=== PATIENT | female | born 1975 | race Caucasian/White ===

== ENCOUNTER 2016-08-11 05:46 | Observation (INO) | payer BC, SELFPAY ==
[2016-08-05 08:33] VITALS: BMI 40.0
--- NOTE | 2016-08-05 09:01 | PAT Medication Instructions ---
Service Date Aug 05, 2016. Current Home Medication List Citalopram Hydrobromide (Celexa), 20 MG PO QPM Fexofenadine Hcl (Kim Allergy), 1 TAB PO QPM Fish Oil (Potter-3), 2 CAP PO QPM Multivitamin (Multivitamin), 1 TAB PO QPM Naproxen Sodium (Aleve), 440 MG PO PRN Ranitidine Hcl (Zantac), 75 MG PO QPM Topiramate (Topamax), 25 MG PO QPM Medication Instructions For Your Scheduled Surgery - Check with surgeon for instructions: Naproxen Sodium (Aleve), 440 MG PO PRN - Hold the following medications starting 08/05/16: Fish Oil ([place]ter-3), 2 CAP PO QPM - Take the following medications as scheduled the night before surgery: Topiramate (Topamax), 25 MG PO QPM Ranitidine Hcl (Zantac), 75 MG PO QPM Multivitamin (Multivitamin), 1 TAB PO QPM Fexofenadine Hcl (Kim Allergy), 1 TAB PO QPM Citalopram Hydrobromide (Celexa), 20 MG PO QPM If you have any questions please call us at [phone] (Krista Pat PA-C) or [phone] or [phone]
[2016-08-05 09:27] LABS: BASO % 0.4 %; BASO ABS # 0.04 K/uL (0-0.2); COMPLETE YES; EOS % 1.6 %; HEMATOCRIT 40.7 % (37-47); IG% 0.2 %; LYMPH % 27.1 %; LYMPH ABS # 2.75 K/uL (1.2-3.4); MEAN CELL VOLUME 89.1 fL (80-100); MEAN CORPUSCULAR HEMOGLOBIN 30.6 pg (25-34); MEAN CORPUSCULAR HGB CONC 34.4 g/dl (32-36); MEAN PLATELET VOLUME 9.5 fL (7.4-10.4); MONO % 7.8 %; NEUT % 62.9 %; PLATELET COUNT 318 K/uL (130-400); RED BLOOD COUNT 4.57 M/uL (4.2-5.4); WHITE BLOOD COUNT 10.15 K/uL (4.8-10.8)
[2016-08-05 09:29] LABS: PARTIAL THROMBOPLASTIN RATIO 1.1; PROTHROMBIN TIME (PATIENT) 10.5 SECONDS (9.0-12.0)
[2016-08-05 09:42] LABS: CALCIUM 9.1 mg/dl (8.5-10.1); CREATININE 0.9 mg/dl (0.60-1.20); POTASSIUM 4.9 mmol/L (3.5-5.1)
[~2016-08-11] VITALS: Ht 170.2 cm; Wt 116.5 kg
[2016-08-11] VITALS (8 sets, daily range): BP systolic 105–142; BP diastolic 61–71; PULSE 66–84; TEMP 36.5–37.3; O2SAT 92–99; Ht 170.2 cm; Wt 116.5 kg
[~2016-08-11 05:46] MED LIST: NAPR220T PO; OMEG10007 PO
[2016-08-11] MEDS ORDERED: ENOXAPARIN 40 MG/0.4 ML SYR SQ SCH (06:00)
[2016-08-11] MEDS ORDERED: CLINDAMYCIN 600 MG/54 ML D5W IV SCH (06:00)
[2016-08-11] MEDS ORDERED: SCOPOLAMINE 1.5 MG TDSY TD SCH (06:00)
[2016-08-11] MEDS ORDERED: LACTATED RINGER'S 1000ML IV SCH (06:00)
--- NOTE | 2016-08-11 06:43 | History & Physical Bridge Note ---
H&P Re-Evaluation Bridge Note: I have examined the patient, reviewed the History & Physical and in the interval since the performance of the History & Physical I have noted the following changes of clinical significance: No changes noted
[2016-08-11] MEDS ORDERED: PROPOFOL IV EMULSION 10 MG/ML 20 ML VIAL IV ONE (06:47)
[2016-08-11] MEDS ORDERED: ONDANSETRON INJ 2 MG/ML 2 ML VIAL ONE ×2 (06:47→08:12)
[2016-08-11] MEDS ORDERED: FENTANYL CITRATE INJ 50 MCG/1 ML 2 ML VIAL ONE (06:47)
[2016-08-11] MEDS ORDERED: MIDAZOLAM HCL 1 MG/ML 2ML VIAL ONE (06:47)
[2016-08-11] MEDS ORDERED: LIDOCAINE HCL 2% 2 ML VIAL (20MG/ML) ONE (06:47)
[2016-08-11] MEDS ORDERED: LIDOCAINE/EPINEPHRINE 1% 20 ML VIAL ONE ×2 (07:01→08:07)
[2016-08-11] MEDS ORDERED: EpINEphrine INJ 1MG/ML AMP 1 MG/ML AMP ONE ×2 (07:01→08:07)
[2016-08-11] MEDS ORDERED: LIDOCAINE HCL 1% 20 ML VIAL ONE ×3 (07:01→08:07)
[2016-08-11] MEDS ORDERED: BUPIVACAINE 0.5 % 5 MG/1 ML MPF 30ML VIAL ONE ×2 (07:02→08:08)
[2016-08-11] MEDS ORDERED: EpHEDrine SULFATE INJ 50 MG/ML AMP IV PRN (08:00)
[2016-08-11] MEDS ORDERED: HYDROmorphone INJ 1 MG/ML SYR IV PRN (08:00)
[2016-08-11] MEDS ORDERED: ATROPINE SULFATE 0.1 MG/ML 5ML SYR IV PRN (08:00)
[2016-08-11] MEDS ORDERED: FENTANYL CITRATE INJ 50 MCG/1 ML 2 ML VIAL IV PRN (08:00)
[2016-08-11] MEDS ORDERED: PROMETHAZINE HCL INJ 12.5 MG in SODIUM CHLORIDE 0.9% 50ML 50 ML IV PRN ×2 (08:00→12:30)
[2016-08-11] MEDS ORDERED: ONDANSETRON INJ 2 MG/ML 2 ML VIAL IV PRN ×2 (08:00→12:30)
[2016-08-11] MEDS ORDERED: EpHEDrine SULFATE 50MG/5ML SYR ONE (08:12)
[2016-08-11] MEDS ORDERED: ROCURONIUM BROMIDE 10 MG/ML 5 ML VIAL ONE ×2 (08:12→08:48)
[2016-08-11] MEDS ORDERED: HYDROmorphone INJ 2 MG/ML SYR/VIAL ONE (08:30)
[2016-08-11] MEDS ORDERED: SODIUM CHLORIDE 0.9% INJ 10 ML VIAL ONE (08:31)
[2016-08-11] MEDS ORDERED: ACETAMINOPHEN 1000 MG/100 ML IV IV ONE (10:53)
[2016-08-11] MEDS ORDERED: METOCLOPRAMIDE HCL INJ 5 MG/ML 2 ML VIAL ONE (11:02)
[2016-08-11] MEDS ORDERED: MoRPHine SULFATE PF 1 MG/ML 10 ML AMP/VIAL ONE (11:04)
--- NOTE | 2016-08-11 12:11 | [facility] Post Operative Brief Note ---
Immediate Operative Summary Operative Date Aug 11, 2016. Pre-Operative Diagnosis Abdominal pannus status post massive weight loss Post-Operative Diagnosis Same as pre-operative diagnosis Procedure(s) Performed Panniculectomy and Suction-Assisted Lipectomy of Abdomen and Flanks Surgeon Dr. Alicia Martin Spray Unit Feeder Surgeon(s) Chayito Emmanuel PA-C Estimated Blood Loss 100ml Findings none Specimens A: Pannus 3698 grams (8.2lbs) Drains JEFF x2 Anesthesia GET Complication(s) None Disposition Recovery Room / PACU
[2016-08-11] MEDS ORDERED: OXYCODONE/ACETAMINOPHEN 5-325 TAB PO PRN (12:30)
[2016-08-11] MEDS ORDERED: OXAZEPAM 10MG CAP PO PRN (12:30)
[2016-08-11] MEDS ORDERED: DiphenhydrAMINE HCL 50 MG/ML VIAL IV PRN (12:30)
[2016-08-11] MEDS ORDERED: ACETAMINOPHEN 325 MG TAB PO PRN (12:30)
[2016-08-11] MEDS ORDERED: MoRPHine SULFATE 2 MG/ML CARP IV PRN ×2 (12:30)
[2016-08-11] MEDS ORDERED: MoRPHine SULFATE 4 MG/ML 1 ML CARP\\VIAL IV PRN (12:30)
--- NOTE | 2016-08-11 12:53 | Anesthesiology Progress Note ---
Anesthesia Post Op Note Date & Time Aug 11, 2016 at 12:53 Vital Signs Pain Intensity: 0 Vital Signs Past 12 Hours Date Time Temp Pulse Resp B/P Pulse Ox O2 Delivery O2 Flow Rate FiO2 08/11/16 12:45 95 16 110/51 100 Mask 10 08/11/16 12:35 69 16 131/48 100 Mask 10 08/11/16 12:25 37.1 96 12 126/53 100 Mask 10 08/11/16 06:14 36.7 66 18 142/68 96 Room Air Notes Mental Status: alert / awake / arousable, participated in evaluation Pt Amnestic to Procedure: Yes Nausea / Vomiting: adequately controlled Pain: adequately controlled Airway Patency, RR, SpO2: stable & adequate BP & HR: stable & adequate Hydration State: stable & adequate Anesthetic Complications: no major complications apparent
[2016-08-11] MEDS ORDERED: IV FLUIDS COMPLETED PRN (13:45)
--- NOTE | 2016-08-11 14:45 | OPERATIVE REPORT ---
DATE OF OPERATION: 08/11/2016 PREOPERATIVE DIAGNOSIS: Overhanging abdominal pannus status post massive weight loss. POSTOPERATIVE DIAGNOSIS: Same. PROCEDURE: Noncosmetic lower abdominal panniculectomy, liposuction of the upper abdomen and flanks. SURGEON: Dr. Alicia Martin. OPERATOR HELPER: Chayito Emmanuel PA-C. ANESTHESIA: General. COMPLICATIONS: None. INDICATION FOR THE PROCEDURE: The patient is a 41-year-old female who underwent a gastric sleeve procedure and lost approximately 100 pounds. She is a competitive weightlifter and felt problems with irritation under her abdominal pannus as well as difficulty performing squats and other weight lifting activities. She desired to undergo panniculectomy and also was interested in liposuction to improve the contour of the upper abdomen and flanks simultaneously. OPERATION AND FINDINGS: BRIEF DESCRIPTION OF THE PROCEDURE: The risks, benefits and alternatives of the procedure were explained to the patient who agreed and signed consent. She was identified and marked in the preoperative holding area. She was brought to the operating room where she was positioned supine and placed under general anesthesia without incident. A Hernandez catheter was placed. Surgical site was prepped and draped sterilely. A time-out procedure was performed. I reassessed my markings which included a low horizontal abdominal incision with the mid portion 7 cm above the lower commissure. Incision was marked bilaterally to the ASIS. I began by injecting 1% lidocaine with epinephrine along the planned incision as well as in several small areas for stab incisions for liposuction access. I began by tumescence the planned areas of liposuction. A total of 300 mL was injected into the left flank as well as another 300 mL into the right flank and 575 mL into the epigastric region. I did not tumescence or perform liposuction to the inferior aspect of the abdomen as this tissue would be removed with the panniculectomy. Once the tumescent fluid was instilled a total of 500 mL were instilled per flank and 1000 mL in the epigastric region. At this point, I opened my lower abdominal incision using a 15 blade scalpel to incise the epidermis and superficial dermis followed by electrocautery to incise deep dermis, subcutaneous fat, Shefali's fascia down to abdominal wall. Care was taken to bevel superiorly in order to avoid encountering the inguinal region. Electrocautery was used to elevate the anterior abdominal skin flap ligating perforating vessels with 3-0 Vicryl ties and electrocautery. Dissection was carried up to the level of the umbilicus in the midline. At this point, liposuction was performed using first a 4 mm followed by a 3 mm cannula to the epigastric region and bilateral flanks. A total of approximately 300 mL was aspirated from each flank and 575 mL from the epigastric region. End points of liposuction were return of bloody fluid and uniform pinch. Care was taken to mostly perform liposuction in the subscarpal area as well as deeper within the subcutaneous fat in order to avoid compromising blood supply to the superior flap or causing contour deformities. The nursing notes reflect the start and stop time for cosmetic and insurance times related to these procedures. At this point, the umbilicus was incised using a 15 blade scalpel and the lower abdominal skin was incised in the midline to the level of the umbilicus. Additional dissection was carried out towards the flanks and about 7 cm or so superior to the umbilicus to facilitate inset. At this point the superior skin flap was inset along the mid portion of the mons pubis using 2-0 Vicryl suture. This was performed after the bed had been flexed to facilitate closure. Skin flaps were marked for excision. A 15 blade scalpel was used to make these incisions and the incision was deepened through the dermis, subcutaneous fat, Shefali's fascia using electrocautery. Subscarpal fat was resected directly. 15-St Helenian Heri drains were placed in the wound bed and brought out through a separate stab incisions in the mons pubis. Drains were sutured into place using 3-0 nylon. Wound closure was begun in lateral to medial direction using 2-0 Vicryl Shefali's fascia sutures, 2-0 Vicryl deep dermal sutures, 2-0 PDO running superficial dermal Quill suture, 3-0 Monocryl running subcuticular suture. The umbilicus was brought out through an inverted triangular incision in the abdominal wall and sutured into place using 4-0 chromic half buried horizontal mattress sutures. There were no liposuction incisions to close this. These were resected with the panniculectomy specimen. The umbilicus was dressed using Xeroform and the incision was dressed using Dermabond Prineo followed by dry dressings and an abdominal binder. 0.25% Marcaine plain was instilled into the drains at the time of closure. The procedure was tolerated well. The patient was awakened and transferred to recovery in satisfactory condition. Chayito Emmanuel PA-C was present and scrubbed throughout the entire procedure and was instrumental in providing retraction of the pannus and assisting in simultaneous wound closure. I attest to the content of the Intraoperative Record and any orders documented therein. Any exceptio ns are noted below.
[2016-08-11] MEDS ORDERED: NURSING VERBAL MED ORDER ONE (15:30)
[2016-08-11] MEDS ORDERED: CHECK SCOPOLAMINE PATCH PLACEMENT SCH (16:00)
[2016-08-11] MEDS: CLINDAMYCIN IV 600 MG in DEXTROSE 5% ADD-VANTAGE 50ML 50 ML IV SCH (16:07)
[2016-08-11] MEDS: LACTATED RINGER'S 1000ML 1,000 ML IV SCH (16:08)
[2016-08-11] MEDS ORDERED: RANITIDINE HCL 150 MG TAB PO SCH (21:00)
[2016-08-11] MEDS ORDERED: TOPIRAMATE 25 MG TAB PO SCH (21:00)
[2016-08-11] MEDS ORDERED: CITALOPRAM 20 MG TAB PO SCH (21:00)
[2016-08-11] MEDS ORDERED: FEXOFENADINE HCL 180 MG TAB PO SCH (21:00)
[2016-08-11] MEDS: OXYCODONE/ACETAMINOPHEN 5-325 TAB PO PRN (21:01)
[2016-08-12] MEDS: CLINDAMYCIN IV 600 MG in DEXTROSE 5% ADD-VANTAGE 50ML 50 ML IV SCH (00:10)
[2016-08-12] MEDS: LACTATED RINGER'S 1000ML 1,000 ML IV SCH (00:10)
[2016-08-12 03:50] VITALS: BP 113/71; PULSE 83; TEMP 37.3; O2SAT 96
[2016-08-12] MEDS: OXYCODONE/ACETAMINOPHEN 5-325 TAB PO PRN (05:55)
[2016-08-12 06:14] LABS: BASO % 0.3 %; BASO ABS # 0.04 K/uL (0-0.2); COMPLETE YES; EOS % 0.7 %; HEMATOCRIT 37.2 % (37-47); IG% 0.4 %; LYMPH ABS # 2.38 K/uL (1.2-3.4); MEAN CELL VOLUME 90.3 fL (80-100); MEAN CORPUSCULAR HEMOGLOBIN 30.6 pg (25-34); MEAN CORPUSCULAR HGB CONC 33.9 g/dl (32-36); MEAN PLATELET VOLUME 9.4 fL (7.4-10.4); MONO % 11.6 %; PLATELET COUNT 297 K/uL (130-400); RED BLOOD COUNT 4.12 M/uL (4.2-5.4); WHITE BLOOD COUNT 15.82 K/uL (4.8-10.8)
[2016-08-12 06:22] LABS: PROTHROMBIN TIME (PATIENT) 11.1 SECONDS (9.0-12.0)
[2016-08-12 07:01] LABS: BUN/CREATININE RATIO 13.2 (10-20); CALCIUM 8.1 mg/dl (8.5-10.1); CREATININE 0.8 mg/dl (0.60-1.20)
[2016-08-12 07:06] VITALS: BP 119/69; PULSE 80; TEMP 37.4; O2SAT 94
--- NOTE | 2016-08-12 08:09 | Discharge Instructions ---
Discharge Instructions Admission Reason for Admission: Abdominal Pannus Discharge Discharge Diagnosis / Problem: abdominal pannus Discharge Goals Goal(s): Decrease discomfort Activity Recommendations Activity Limitations: as noted below ACTIVITY RECOMMENDATIONS: __Normal activities _x_No bending, lifting or straining. __No driving __Driving allowed when you are off pain medications __Walking permitted __You should have help at home for ___ days DRESSINGS: __No dressings required _x_Keep dressings dry/in place until first office visit __Remove dressings ___ and leave dressings off __Apply ice ___ days __Remove dressings and reapply garment __Apply antibiotic ointment (Bacitracin, Neosporin, etc) to wounds 3-4 times/ day for 10 days BATHING: _x_Keep dressings dry _x_Sponge bathing permitted __Showering permitted _x_No swimming, hot tubs or soaking in a tub MEDICATIONS: Resume previous medications unless instructed otherwise by your surgeon. _x_Do not use aspirin, Motrin, Advil or Ibuprofen as these may promote bleeding. Please use Tylenol. _x_Prescription(s) provided: Pain medication provided at your last office visit OTHER INSTRUCTIONS: _x_Record drain output 2-3 times per day SPECIAL CARE INSTRUCTIONS: * It is normal to have a mild fever after surgery. If your temperature is higher than 101.5 degrees F, please call the office at [phone]. * Constipation is a typical side effect of pain medication. An over-the- counter stool softener will help relieve this. * Leaking around surgical drains may occur and should not cause concern. Sometimes these drains become clogged. If this happens, remove the bulb and milk the clot out of the tube, then replace the bulb. * Drainage from wounds after liposuction is normal and should be expected. Garments will become soiled. You should protect furniture and bedding. This drainage should mostly subside within 2-3 days. Leave garments in place unless instructed to remove them. * If you have unusual drainage from a wound or are concerned you have an infection or have any questions or concerns, please call the office at [phone]. FOLLOW UP VISIT: If not already scheduled, please call the office, , when you return home after surgery to schedule an appointment to be seen in __1_ days. . Current Hospital Diet Patient's current hospital diet: Regular Diet Discharge Diet Recommended Diet: Regular Diet Procedures Procedures Performed: Panniculectomy and Suction-Assisted Lipectomy of Abdomen and Flanks Pending Studies Studies pending at discharge: yes List of pending studies: pathology Medical Emergencies . Who to Call and When: Medical Emergencies: If at any time you feel your situation is an emergency, please call 911 immediately. . Non-Emergent Contact Non-Emergency issues call your: Primary Care Provider, Surgeon . "Provider Documentation" section prepared by Chayito Emmanuel. VTE Core Measure Inpt VTE Proph given/why not?: Enoxaparin (Lovenox)SQ, SCD's
--- NOTE | 2016-08-12 08:22 | Surgery Progress Note ---
Surgery Progress Note Date of Service Aug 12, 2016. Subjective Post OP Day: 1 + feeling well, + nausea, + pain controlled Objective Vital Signs: Date Time Temp Pulse Resp B/P Pulse Ox O2 Delivery O2 Flow Rate FiO2 08/12/16 07:06 37.4 80 16 119/69 94 Room Air 08/12/16 03:50 37.3 83 15 113/71 96 Room Air 08/12/16 00:15 Room Air 08/11/16 23:10 37.3 69 16 111/67 96 Room Air 08/11/16 19:20 36.5 80 18 105/64 95 Room Air 08/11/16 16:50 36.5 70 16 108/61 95 Room Air 08/11/16 15:50 36.6 73 16 107/62 92 Room Air 08/11/16 15:15 Room Air 08/11/16 15:03 36.5 84 18 118/69 98 Room Air 08/11/16 14:22 36.5 68 14 105/63 95 Room Air 08/11/16 13:50 36.8 70 16 111/71 99 Room Air 08/11/16 13:50 Room Air 08/11/16 13:25 37 72 16 114/45 95 Room Air 08/11/16 13:15 37 67 16 112/52 99 Room Air 08/11/16 13:05 37 76 16 109/50 100 Room Air 08/11/16 12:55 37 78 16 118/52 96 Room Air 08/11/16 12:45 95 16 110/51 100 Mask 10 08/11/16 12:35 69 16 131/48 100 Mask 10 08/11/16 12:25 37.1 96 12 126/53 100 Mask 10 Physical Exam: Heri drainage (serosanginous drainage ) General Appearance: WD/WN, no apparent distress Abdomen: soft Incision(s): clean, dry, intact, no erythema Laboratory Results: Results Past 24 Hours Test 08/12/16 05:55 Range/Units White Blood Count 15.82 4.8-10.8 K/uL Red Blood Count 4.12 4.2-5.4 M/uL Hemoglobin 12.6 12.0-16.0 g/dL Hematocrit 37.2 37-47 % Mean Corpuscular Volume 90.3 80-100 fL Mean Corpuscular Hemoglobin 30.6 25-34 pg Mean Corpuscular Hemoglobin Concent 33.9 32-36 g/dl Platelet Count 297 130-400 K/uL Mean Platelet Volume 9.4 7.4-10.4 fL Neutrophils (%) (Auto) 72.0 % Lymphocytes (%) (Auto) 15.0 % Monocytes (%) (Auto) 11.6 % Eosinophils (%) (Auto) 0.7 % Basophils (%) (Auto) 0.3 % Neutrophils # (Auto) 11.39 1.4-6.5 K/uL Lymphocytes # (Auto) 2.38 1.2-3.4 K/uL Monocytes # (Auto) 1.84 0.11-0.59 K/uL Eosinophils # (Auto) 0.11 0-0.5 K/uL Basophils # (Auto) 0.04 0-0.2 K/uL RDW Standard Deviation 43.5 36.4-46.3 fL RDW Coefficient of Variation 13.2 11.5-14.5 % Immature Granulocyte % (Auto) 0.4 % Immature Granulocyte # (Auto) 0.06 0.00-0.02 K/uL Prothrombin Time 11.1 9.0-12.0 SECONDS Prothromb Time International Ratio 1.0 0.9-1.1 Activated Partial Thromboplast Time 25.4 21.0-31.0 SECONDS Partial Thromboplastin Ratio 1.0 Sodium Level 140 136-145 mmol/L Potassium Level 4.0 3.5-5.1 mmol/L Chloride Level 106 98-107 mmol/L Carbon Dioxide Level 25 21-32 mmol/L Anion Gap 9.0 3-11 mmol/L Blood Urea Nitrogen 11 7-18 mg/dl Creatinine 0.80 0.60-1.20 mg/dl Est Creatinine Clear Calc Drug Dose 123.3 ml/min Estimated GFR () 106.9 Estimated GFR (Non- 92.2 BUN/Creatinine Ratio 13.2 10-20 Random Glucose 107 70-99 mg/dl Calcium Level 8.1 8.5-10.1 mg/dl Assessment & Plan s/p panniculectomy with liposuction 1. doing well. had some nausea so will send zofran to pharmacy. d/c instructions reviewed. will d/c home
[2016-08-12] MEDS ORDERED: MULTIVITAMIN TAB PO SCH (09:00)
[2016-08-12] MEDS ORDERED: ENOXAPARIN 40 MG/0.4 ML SYR SQ SCH (09:00)
[2016-08-12 10:55] VITALS: BP 119/69; PULSE 80; TEMP 37.4; O2SAT 94
--- NOTE | 2016-08-13 09:18 | Discharge Summary ---
Discharge Summary Admission Date/Reason Aug 11, 2016 at 12:58 Abdominal Pannus. Discharge Date/Disposition Aug 12, 2016 Home Diagnosis Principal Diagnosis: abdominal pannus Procedure(s) Performed panniculectomy with suction assisted lipectomy Medication Reconciliation Continued Medications: Citalopram Hydrobromide (Celexa) 20 Mg Tab 20 MG PO QPM, TAB Fexofenadine Hcl (Kim Allergy) 180 Mg Tab 1 TAB PO QPM for 14 Days, TAB 2 Refills Multivitamin (Multivitamin) Tab 1 TAB PO QPM, 0 Refills Ranitidine Hcl (Zantac) 75 Mg Tab 75 MG PO QPM, TAB Topiramate (Topamax) 50 Mg Tab 25 MG PO QPM, TAB Discontinued Medications: Fish Oil ([place]-3) 1 Ea Cap 2 CAP PO QPM, CAP Naproxen Sodium (Aleve) 220 Mg Tab 440 MG PO PRN, TAB Admission Physical Exam As per Admitting History & Physical. Hospital Course Patient presented to [facility] with history of abdominal pannus. She was taken to the OR and underwent panniculectomy with suction assisted lipectomy of her abdomen and flanks. About 8 pounds were removed from her pannus. Two savanah drains were placed intraoperatively. She tolerated the procedure well. An abdominal binder was placed while patient was in semi-thomas position. On POD #1, she was feeling well but had some nausea. On exam, her abdomen was soft and her incisions were clean, dry and intact. Her drains had serosanguineous drainage. She was discharged home. Michael was sent to her pharmacy. She was instructed to follow-up in the office POD#2. Discharge Instructions Please refer to the electronic Patient Visit Report (Discharge Instructions) for additional information.
[2016-10-13] MEDS ORDERED: FEXO1TAB49 PO (08:31)
[2016-10-13] MEDS ORDERED: CITA20TA9 PO (12:51)
[2016-10-13] MEDS ORDERED: RANITAB33 PO (12:51)
[2016-10-13] MEDS ORDERED: TPM/50 PO (12:51)
[2016-10-13] MEDS ORDERED: MULT-506 PO (14:11)
== END 2016-08-12 11:25 | disposition home or self-care (01) ==
LOC: ENRESERVDT → ENRESERVTM → C.ACU 05:46 → C.MSW 12:58
PROVIDERS: ADMIT Plastic Surgery; ATTEND Plastic Surgery
DX: E65 Localized adiposity (principal); Z98.84 Bariatric surgery status; Z90.49 Acquired absence of other specified parts of digestive tract; Z82.49 Family history of ischemic heart disease and other diseases of the circulatory system; Z83.3 Family history of diabetes mellitus; Z84.1 Family history of disorders of kidney and ureter

== ENCOUNTER → 2016-10-11 | Outpatient (CLI) | payer BC ==
[~2016-10-11] MED LIST changes: +CITA20TA9 PO; +FEXO1TAB49 PO; +MULT-506 PO; -NAPR220T PO; +RANITAB33 PO; +TPM/50 PO
[2016-10-11 17:52] LABS: BASO % 0.3 %; BASO ABS # 0.04 K/uL (0-0.2); COMPLETE YES; EOS % 1.2 %; HEMATOCRIT 40.2 % (37-47); IG% 0.2 %; LYMPH % 27.2 %; LYMPH ABS # 3.53 K/uL (1.2-3.4); MEAN CELL VOLUME 89.3 fL (80-100); MEAN CORPUSCULAR HEMOGLOBIN 30.2 pg (25-34); MEAN CORPUSCULAR HGB CONC 33.8 g/dl (32-36); MEAN PLATELET VOLUME 10.5 fL (7.4-10.4); MONO % 6.8 %; NEUT % 64.3 %; PLATELET COUNT 338 K/uL (130-400)
[2016-10-11 18:12] LABS: ALB/GLOB RATIO 1.2 (0.9-2); ALKALINE PHOSPHATASE 71 U/L (45-117); ALT/SGPT 28 U/L (12-78); AST/SGOT 8 U/L (15-37); BLOOD UREA NITROGEN 19 mg/dl (7-18); BUN/CREATININE RATIO 19.6 (10-20); CARBON DIOXIDE 26 mmol/L (21-32); CHLORIDE 106 mmol/L (98-107); CREATININE 0.95 mg/dl (0.60-1.20); GLUCOSE 101 mg/dl (70-99); MAGNESIUM 2.2 mg/dl (1.8-2.4); POTASSIUM 4.3 mmol/L (3.5-5.1); SODIUM 140 mmol/L (136-145)
== END | disposition home or self-care (01) ==
LOC: C.LABSPEC 17:31
PROVIDERS: ATTEND Internal Medicine
DX: R00.2 Palpitations (principal); I49.3 Ventricular premature depolarization

== ENCOUNTER 2016-10-13 16:28 | Emergency (ER) | payer BC ==
[~2016-10-13] VITALS: Ht 170.2 cm; Wt 112.0 kg
[~2016-10-13 16:28] MED LIST changes: -OMEG10007 PO
[2016-10-13 16:32] VITALS: TEMP 36.4; Ht 170.2 cm; Wt 112.0 kg
[2016-10-13 16:41] VITALS: O2SAT 10
--- NOTE | 2016-10-13 16:55 | EMERGENCY ROOM VISIT NOTE ---
History Report prepared by Kike: Sriram Becerra Under the Supervision of: Dr. Dusty Triana D.O. First contact with patient: 16:35 Chief Complaint: PALPITATIONS Stated Complaint: SOB, HEART PALPITATIONS, NUMB HANDS/FEET, DIZZY Nursing Triage Summary: Pt presents with chest pressure since last , now spreading across chest and into throat. SOB. Lightheaded. History of Present Illness The patient is a 41 year old female who presents to the Emergency Room with complaints of waxing and waning heart palpitations that started 6 days ago. She says that her heart palpitations seem random, and her heart rate runs from 40 bpm to 100 bpm. The patient describes it as "building up pressure and releasing ". She has been having intermittent shortness of breath and lightheadedness. Her trouble breathing is worsened when lying flat and when lying on her right side. She has been nauseous. 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 However , while training today, her hands started getting tingly and she got dizzy. She also started getting sternal chest pain and throat pain today. The patient says that activity does not change the heart palpitations much, but if she is standing up for a while, it seems to make her palpitations worse. The patient says that she had symptoms similar to this when she was . She wore a monitor for a while, and nothing was found. The patient notes that she has anxiety, and was wondering if some recent stressful events could have exacerbated her symptoms, but even after the stressors, her symptoms have persisted and have even worsened. She saw her primary care physician a few days ago, but did not get her stress test yet. She had an EKG done, which revealed a premature beat. The patient denies vomiting, recent illness, diarrhea, leg pain , or leg swelling. She has no history of a heart cath or echocardiogram. The patient takes Topamax and Citalopram. She supplements with fish oil and creatine. She does not take any steroids. Source of History: patient Onset: 6 days ago Position: chest Quality: other (heart palpitations) Timing: waxes/wanes, worsening Modifying Factors (Worsening): other (standing up for a while) Associated Symptoms: + SOB, + chest pain, + nausea, No diarrhea Note: Associated symptoms: Episode of hand tingling, dizziness, throat pain. Intermittent lightheadedness. Denies recent illness, leg pain, leg swelling. Review of Systems See HPI for pertinent positives & negatives. A total of 10 systems reviewed and were otherwise negative. Past Medical & Surgical Medical Problems: (1) Bronchitis (2) CHOLECYSTITIS (3) Diabetes mellitus type 2 (4) Elevated WBC count (5) Polycystic ovarian syndrome Family History No pertinent family history Social History Smoking Status: Never Smoker Alcohol Use: none Marital Status: Housing Status: lives with family Occupation Status: employed Current/Historical Medications Scheduled Citalopram Hydrobromide (Celexa), 20 MG PO QPM Fexofenadine Hcl (Kim Allergy), 1 TAB PO QPM Fish Oil ([place]-3), 1 CAP PO DAILY Multivitamin (Multivitamin), 1 TAB PO QPM Ranitidine Hcl (Zantac), 75 MG PO QPM Topiramate (Topamax), 25 MG PO QPM Allergies Coded Allergies: Penicillins (Verified Allergy, Intermediate, UNKNOWN, 08/11/16) Macrolides (Verified Allergy, Mild, SICK STOMACH, 08/11/16) Latex1 -Allergic Contact Dermititis (Verified Allergy, Unknown, RED IRRITATION WITH PROLONGED CONTACT WITH LATEX/BANDAIDS, 08/11/16) Physical Exam Vital Signs Date Time Temp Pulse Resp B/P Pulse Ox O2 Delivery O2 Flow Rate FiO2 10/13/16 22:53 63 18 112/65 94 10/13/16 21:29 61 16 117/53 95 Room Air 10/13/16 19:06 80 17 119/78 100 Room Air 10/13/16 18:25 61 17 133/70 100 Room Air 10/13/16 17:05 100 Room Air 10/13/16 16:46 65 10/13/16 16:41 10 Room Air 10/13/16 16:32 36.4 62 18 134/89 100 Room Air Physical Exam GENERAL: Patient is awake, alert, mildly anxious appearing but overall comfortable. EYES: The conjunctivae are clear. The pupils are round and reactive. EARS, NOSE, MOUTH AND THROAT: The nose is without any evidence of any deformity. Mucous membranes are moist tongue is midline NECK: The neck is nontender and supple. RESPIRATORY: Normal respiratory effort is noted there is no evidence of wheezing rhonchi or rales CARDIOVASCULAR: Ectopy noted to auscultation. Rate appeared normal to auscultation. No definite murmur appreciated. GASTROINTESTINAL: The abdomen is soft. Bowel sounds are present in all quadrants. Abdomen is nontender MUSCULOSKELETAL/EXTREMITIES: There is no evidence of gross deformity full range of motion is noted in the hips and shoulders SKIN: There is no obvious evidence of any rash. There are no petechiae, pallor or cyanosis noted. NEUROLOGIC: Patient is awake alert and oriented x3 strength is symmetric patellar reflexes are 2+ bilaterally Medical Decision & Procedures ER Provider Diagnostic Interpretation: X-ray results as stated below per interpretation by me and the radiologist. CHEST ONE VIEW PORTABLE CLINICAL HISTORY: palpitations cardiac arrhythmia COMPARISON STUDY: 03/26/2013 FINDINGS: The bones soft tissues and hemidiaphragms are normal. The cardiomediastinal silhouette is normal. The lungs are clear. The pulmonary vasculature is normal. IMPRESSION: Negative chest. Electronically signed by: Quan Enriquez M.D. 10/13/2016 4:53 PM Dictated Date/Time: 10/13/2016 4:53 PM Laboratory Results 10/13/16 17:09 Red Blood Count 4.42, Mean Corpuscular Volume 89.4, Mean Corpuscular Hemoglobin 30.5, Mean Corpuscular Hemoglobin Concent 34.2, Mean Platelet Volume 9.8, Neutrophils (%) (Auto) 66.7, Lymphocytes (%) (Auto) 24.0, Monocytes (%) (Auto) 7.7, Eosinophils (%) (Auto) 1.1, Basophils (%) (Auto) 0.3, Neutrophils # (Auto) 8.91, Lymphocytes # (Auto) 3.20, Monocytes # (Auto) 1.02, Eosinophils # (Auto) 0.14, Basophils # (Auto) 0.04 10/13/16 17:09 Test 10/13/16 17:09 10/13/16 17:10 10/13/16 17:14 10/13/16 21:50 White Blood Count 13.33 K/uL (4.8-10.8) Red Blood Count 4.42 M/uL (4.2-5.4) Hemoglobin 13.5 g/dL (12.0-16.0) Hematocrit 39.5 % (37-47) Mean Corpuscular Volume 89.4 fL (80-100) Mean Corpuscular Hemoglobin 30.5 pg (25-34) Mean Corpuscular Hemoglobin Concent 34.2 g/dl (32-36) Platelet Count 304 K/uL (130-400) Mean Platelet Volume 9.8 fL (7.4-10.4) Neutrophils (%) (Auto) 66.7 % Lymphocytes (%) (Auto) 24.0 % Monocytes (%) (Auto) 7.7 % Eosinophils (%) (Auto) 1.1 % Basophils (%) (Auto) 0.3 % Neutrophils # (Auto) 8.91 K/uL (1.4-6.5) Lymphocytes # (Auto) 3.20 K/uL (1.2-3.4) Monocytes # (Auto) 1.02 K/uL (0.11-0.59) Eosinophils # (Auto) 0.14 K/uL (0-0.5) Basophils # (Auto) 0.04 K/uL (0-0.2) RDW Standard Deviation 41.0 fL (36.4-46.3) RDW Coefficient of Variation 12.6 % (11.5-14.5) Immature Granulocyte % (Auto) 0.2 % Immature Granulocyte # (Auto) 0.02 K/uL (0.00-0.02) Prothrombin Time 11.2 SECONDS (9.0-12.0) Prothromb Time International Ratio 1.0 (0.9-1.1) Activated Partial Thromboplast Time 28.3 SECONDS (21.0-31.0) Partial Thromboplastin Ratio 1.1 Anion Gap 7.0 mmol/L (3-11) Est Creatinine Clear Calc Drug Dose 109.7 ml/min Estimated GFR () 95.3 Estimated GFR (Non- 82.2 BUN/Creatinine Ratio 20.9 (10-20) Calcium Level 8.6 mg/dl (8.5-10.1) Magnesium Level 1.8 mg/dl (1.8-2.4) Total Bilirubin 0.4 mg/dl (0.2-1) Direct Bilirubin < 0.1 mg/dl (0-0.2) Aspartate Amino Transf (AST/SGOT) 10 U/L (15-37) Alanine Aminotransferase (ALT/SGPT) 23 U/L (12-78) Alkaline Phosphatase 62 U/L (45-117) Total Creatine Kinase 90 U/L (26-192) Creatine Kinase MB 1.0 ng/ml (0.5-3.6) Creatine Kinase MB Ratio 1.1 (0-3.0) Total Protein 6.9 gm/dl (6.4-8.2) Albumin 3.9 gm/dl (3.4-5.0) Lipase 137 U/L (73-393) Thyroid Stimulating Hormone (TSH) 0.995 uIu/ml (0.300-4.500) Free Thyroxine 1.15 ng/dl (0.80-1.60) Human Chorionic Gonadotropin, Qual NEG (NEG) Urine Color YELLOW Urine Appearance CLEAR (CLEAR) Urine pH 5.5 (4.5-7.5) Urine Specific [place] 1.032 (1.000-1.030) Urine Protein NEG (NEG) Urine Glucose (UA) NEG (NEG) Urine Ketones NEG (NEG) Urine Occult Blood NEG (NEG) Urine Nitrite NEG (NEG) Urine Bilirubin NEG (NEG) Urine Urobilinogen NEG (NEG) Urine Leukocyte Esterase TRACE (NEG) Urine WBC (Auto) 5-10 /hpf (0-5) Urine RBC (Auto) 0-4 /hpf (0-4) Urine Hyaline Casts (Auto) 1-5 /lpf (0-5) Urine Epithelial Cells (Auto) >30 /lpf (0-5) Urine Bacteria (Auto) 1+ (NEG) Bedside D-Dimer 257 ng/mlFEU (0-450) Troponin I < 0.015 ng/ml (0-0.045) Laboratory results per my review. ECG Indication: palpitations Rate (beats per minute): 71 Rhythm: normal sinus Findings: PVC, T-wave inversion (Inferior), other (no acute ST segment abnormalities) Change: Second ECG: Normal sinus rhythm at 65 bpm, PVC's noted, no acute ST segment abnormalities, no change from earlier tracing. ED Course 1636: The patient was evaluated in room A12B. A complete history and physical examination were performed. 1857: I reevaluated and updated the patient. 1999: I talked to the patient and she is okay with waiting a bit longer to hear back from Dr. Hirsch. 2112: Upon reevaluation, the patient is resting comfortably. I discussed the results and treatment plan with her. She verbalized agreement of the treatment plan. She will be discharged home. 2129: I discussed the patient's presentation with Dr. Hirsch - city routeman. Medical Decision Triage Nursing notes reviewed. Differential diagnosis: Etiologies such as premature contractions, electrolyte abnormality, cardiac dysrhythmia, thyroid dysfunction, pulmonary embolism, infection, gastrointestinal, as well as others were entertained. The patient is a 41-year-old female who presented to the emergency department for an evaluation of palpitations. The patient had palpitations as well as near syncope. She describes some discomfort in her chest. Her symptoms have an ongoing for the last 24 hours. She was found have a bradycardic rhythm underlying with frequent PVCs. Her d-dimer is negative. Her troponin was negative. I discussed the patient's laboratory and radiographic studies with her. She was treated with IV fluids in the emergency department. I also discussed her case with her primary care physician. At this time he is agreed to see the patient within the next 24 hours and arrange further studies such as echocardiogram and Holter monitor. The patient was advised to rest and avoid any strenuous activity. She was also encouraged to continue all medications as prescribed and return to the emergency department immediately if symptoms change worsen or need arises. Consults Time Called: 1999 Consulting Physician: Dr. Hirsch - city routeman Returned Call: 2129 I discussed the patient's presentation with Dr. Joycelyn helm. Impression Primary Impression: Palpitations Additional Impression: PVCs (premature ventricular contractions) Scribe Attestation The scribe's documentation has been prepared under my direction and personally reviewed by me in its entirety. I confirm that the note above accurately reflects all work, treatment, procedures, and medical decision making performed by me. Departure Information Dispostion Home / Self-Care Referrals Aba Malagon M.D. (PCP) Forms HOME CARE DOCUMENTATION FORM, IMPORTANT VISIT INFORMATION, WORK / SCHOOL INSTRUCTIONS Patient Instructions ED Palpitations, My [facility], Premature Ventricular Contractions Additional Instructions Call your family in the morning to schedule a follow-up appointment. Rest and avoid any strenuous activity. Continue all medications as prescribed. Discuss the possibility with your family he may require further studies. Return to the emergency Department immediately if symptoms change worsen or the need arises. Problem Qualifiers
[2016-10-13] MEDS ORDERED: OMEG10007 PO (17:06)
[2016-10-13 17:21] LABS: BASO % 0.3 %; BASO ABS # 0.04 K/uL (0-0.2); COMPLETE YES; EOS % 1.1 %; HEMATOCRIT 39.5 % (37-47); IG% 0.2 %; MEAN CELL VOLUME 89.4 fL (80-100); MEAN CORPUSCULAR HEMOGLOBIN 30.5 pg (25-34); MEAN CORPUSCULAR HGB CONC 34.2 g/dl (32-36); MEAN PLATELET VOLUME 9.8 fL (7.4-10.4); MONO % 7.7 %; NEUT % 66.7 %; PLATELET COUNT 304 K/uL (130-400); RED BLOOD COUNT 4.42 M/uL (4.2-5.4); WHITE BLOOD COUNT 13.33 K/uL (4.8-10.8)
[2016-10-13 17:30] LABS: URINE APPEARANCE CLEAR (CLEAR); URINE BILIRUBIN NEG (NEG); URINE COLOR YELLOW; URINE EPITHELIAL CELL AUTO >30 /lpf (0-5); URINE NITRITE NEG (NEG); URINE PH 5.5 (4.5-7.5); URINE SPECIFIC GRAVITY 1.032 (1.000-1.030); UROBILINOGEN NEG (NEG)
[2016-10-13 17:33] LABS: MANUAL MICROSCOPIC REQUIRED? NO; REVIEW REQ? NO
[2016-10-13 17:38] LABS: ALT/SGPT 23 U/L (12-78); AST/SGOT 10 U/L (15-37); BLOOD UREA NITROGEN 18 mg/dl (7-18); BUN/CREATININE RATIO 20.9 (10-20); CALCIUM 8.6 mg/dl (8.5-10.1); CARBON DIOXIDE 25 mmol/L (21-32); CHLORIDE 107 mmol/L (98-107); CREATININE 0.88 mg/dl (0.60-1.20); GLUCOSE 101 mg/dl (70-99); MAGNESIUM 1.8 mg/dl (1.8-2.4); SODIUM 139 mmol/L (136-145)
[2016-10-13 17:46] LABS: ALKALINE PHOSPHATASE 62 U/L (45-117); CKMB/CK RATIO 1.1 (0-3.0); PARTIAL THROMBOPLASTIN RATIO 1.1; PROTHROMBIN TIME (PATIENT) 11.2 SECONDS (9.0-12.0); THYROID STIMULATING HORMONE 0.995 uIu/ml (0.300-4.500)
[2016-10-13 17:48] LABS: PREG INTERNAL NEGATIVE QC NEG CLEAR BACKGROUND; PREG INTERNAL POSITIVE QC POS CONTROL LINE
[2016-10-13 22:53] VITALS: BP 112/65; PULSE 63; O2SAT 94
== END 2016-10-13 22:55 | disposition home or self-care (01) ==
LOC: C.EDB 16:30 → C.EDA 22:55
DX: I49.3 Ventricular premature depolarization (principal); Z79.899 Other long term (current) drug therapy; E11.9 Type 2 diabetes mellitus without complications; E28.2 Polycystic ovarian syndrome

== ENCOUNTER → 2016-10-29 | Outpatient (CLI) | payer BC ==
[~2016-10-29] MED LIST changes: +OMEG10007 PO; +PERFLUTREN LIPID MICROSPHERE (DEFINITY) IV ONE
--- NOTE | 2016-10-29 12:57 | EXERCISE STRESS ECHO ---
*NOTICE TO RECEIVING LIBERTARIAN AGENCY This information is strictly Confidential and protected under [place] law. [place] law prohibits you from making any further disclosure of this information unless further disclosure is expressly permitted by the written consent of the person to whom it pertains or is authorized by law. A general authorization for the release of medical or other information is not sufficient for this purpose. Hospital accepts no responsibility if the information is made available to any other person, INCLUDING THE PATIENT. Interpretation Summary * Name: KYLAH MAXWELL Study Date: 10/29/2016 08:50 AM BP: 121/68 mmHg * Patient Location: [facility] HR: 61 * : 1975 (M/d/yyyy) Gender: Female Height: 67 in * Age: 41 yrs Ethnicity: [place] Weight: 240 lb * Ordering Physician: Aba Malagon * Referring Physician: Aba Malagon * Performed By: Alicia Zurita * * Reason For Study: PALPITATIONS, PVC'S * BSA: 2.2 m2 * Resting echocardiogram with normal biventricular systolic function. Mild left atrial dilatation. No significant valvular abnormalities. * Hypertensive blood pressure response to exercise. * No arrhythmias during exercise. Rare premature supraventricular beat in the recovery phase. * No chest pain or other anginal type symptoms during or following exercise. * The exercise echocardiographic examination is normal without resting left ventricular wall motion abnormalities or inducible ischemia. * The left ventricular ejection fraction increases normally with stress. The left ventricular end-systolic cavity size reduces post-stress (normal response). The left ventricular wall motion with stress is normal. * The stress echocardiogram is negative for inducible ischemia. * The stress ECG response was normal Procedure Details * ECHOEX, CPT #[id number] * ECHO DOPPLER, CPT #[id number] * ECHO COLOR FLOW, CPT #[id number] * A contrast injection of Definity was performed to improve assessment of LV function. * Contrast was injected into an intravenous site in the right arm. * One vial of Definity ultrasound contrast was diluted in normal saline to a total volume of 10 ml. A total of '5' ml of solution was administered during imaging. * Lot # [id number] of Definity utilized for procedure. * Expiration date 10/12. * The attending nurse who injected the contrast agent was DORY GARCIA RN. Left Ventricle * The left ventricle is normal in size. * There is normal left ventricular wall thickness. * Ejection Fraction = 55-60%. * Left ventricular systolic function is normal. * Resting wall motion: Normal. Stress wall motion: Appropriate increase in Left ventricular systolic function and decrease in cavity size. No stress induced segmental wall motion abnormalities. * The left ventricular ejection fraction increases normally with stress. The left ventricular end-systolic cavity size reduces post-stress (normal response). The left ventricular wall motion with stress is normal. Right Ventricle * The right ventricle is normal in size and function. * The right ventricular systolic function is normal as assessed by tricuspid annular plane systolic excursion (TAPSE) (normal >1.5 cm). Atria * The left atrium is mildly dilated. * Right atrial size is normal. Mitral Valve * The mitral valve is normal. * There is no mitral valve stenosis. * There is no mitral regurgitation noted. Tricuspid Valve * The tricuspid valve is normal. * There is no tricuspid stenosis. * No tricuspid regurgitation. Aortic Valve * The aortic valve is trileaflet. * The aortic valve opens well. * Aortic stenosis is absent. * No aortic regurgitation is present. Pulmonic Valve * The pulmonic valve is not well seen, but is grossly normal. * Pulmonic stenosis is absent. * There is no pulmonic valvular regurgitation. Great Vessels * The aortic root is normal size. Pericardium * There is no pericardial effusion. Stress Parameters * Normal baseline electrocardiogram. * The stress ECG response was normal * The stress portion of this study was personally supervised by the undersigned interpreting physician. * Rest heart rate was '59' BPM. * Rest blood pressure was '121/68' * Maximum heart rate achieved was 166 bpm. * Maximum heart rate was 92 % of maximum age-predicted heart rate. * Maximum blood pressure was '194/62' * Total exercise time was '9:14' * Maximum exercise MET level achieved was '10.40' METS * Maximum treadmill speed was '4.20' miles per hour. * Maximum treadmill elevation was '16.00'% grade. * Exercise was terminated due to 'leg fatigue' * No symptoms during exercise. * The patient exhibited a hypertensive response with stress. MMode 2D Measurements and Calculations IVSd 0.92 cm IVSs 1.8 cm LVIDd 5.3 cm LVIDs 3.5 cm LVPWd 0.86 cm LVPWs 1.6 cm IVS/LVPW 1.1 FS 34.3 % EDV(Teich) 138.1 ml ESV(Teich) 51.3 ml EF(Teich) 62.8 % EDV(cubed) 152.8 ml ESV(cubed) 43.4 ml EF(cubed) 71.6 % % IVS thick 89.7 % % LVPW thick 83.3 % LV mass(C)d 174.7 grams LV mass(C)dI 79.9 grams/m\S\2 LV mass(C)s 230.4 grams LV mass(C)sI 105.5 grams/m\S\2 CO(Teich) 5.0 l/min CI(Teich) 2.3 l/min/m\S\2 SV(Teich) 86.8 ml SI(Teich) 39.7 ml/m\S\2 CO(cubed) 6.3 l/min CI(cubed) 2.9 l/min/m\S\2 SV(cubed) 109.5 ml SI(cubed) 50.1 ml/m\S\2 ACS 1.5 cm LA dimension 4.2 cm asc Aorta Diam 3.2 cm LVOT diam 2.0 cm LVOT area 3.0 cm\S\2 LVAd ap4 38.0 cm\S\2 LVLd ap4 8.9 cm EDV(MOD-sp4) 136.0 ml LVAs ap4 21.3 cm\S\2 LVLs ap4 7.5 cm ESV(MOD-sp4) 54.6 ml EF(MOD-sp4) 59.9 % LVAd ap2 34.2 cm\S\2 LVLd ap2 8.5 cm EDV(MOD-sp2) 120.0 ml LVAs ap2 20.3 cm\S\2 LVLs ap2 7.3 cm ESV(MOD-sp2) 49.8 ml EF(MOD-sp2) 58.5 % CO(MOD-sp4) 4.7 l/min CI(MOD-sp4) 2.2 l/min/m\S\2 SV(MOD-sp4) 81.4 ml SI(MOD-sp4) 37.3 ml/m\S\2 CO(MOD-sp2) 4.1 l/min CI(MOD-sp2) 1.9 l/min/m\S\2 SV(MOD-sp2) 70.2 ml SI(MOD-sp2) 32.1 ml/m\S\2 Doppler Measurements and Calculations MV E max silvano 101.9 cm/sec MV A max silvano 40.3 cm/sec MV E/A 2.5 MV dec time 0.21 sec Ao V2 max 169.7 cm/sec Ao max PG 11.5 mmHg Ao max PG (full) 6.3 mmHg ANISA(V,A) 2.0 cm\S\2 ANISA(V,D) 2.0 cm\S\2 LV V1 max PG 5.2 mmHg LV V1 max 114.0 cm/sec PA V2 max 70.3 cm/sec PA max PG 2.0 mmHg
== END | disposition home or self-care (01) ==
LOC: C.CPL 08:16
PROVIDERS: ATTEND Internal Medicine
DX: I49.8 Other specified cardiac arrhythmias (principal)

== ENCOUNTER → 2017-06-14 | Outpatient (CLI) | payer BC ==
[~2017-06-14] MED LIST changes: -PERFLUTREN LIPID MICROSPHERE (DEFINITY) IV ONE
== END | disposition home or self-care (01) ==
LOC: C.LABSPEC 17:27
PROVIDERS: ATTEND Physician Assistant
DX: N89.8 Other specified noninflammatory disorders of vagina (principal)

== ENCOUNTER → 2017-11-02 | Outpatient (CLI) | payer OTHER | END | disposition home or self-care (01) | LOC: C.PAPS 18:13 | PROVIDERS: ATTEND Obstetrics & Gynecology | DX: Z12.4 Encounter for screening for malignant neoplasm of cervix (principal) ==

== ENCOUNTER → 2018-02-06 | Outpatient (CLI) | payer OTHER ==
--- NOTE | 2018-02-06 13:08 | MAMMOGRAPHY REPORT ---
BILATERAL FIRST EVER DIGITAL SCREENING MAMMOGRAM TOMOSYNTHESIS WITH CAD: 02/06/2018 CLINICAL HISTORY: Routine screening. Baseline exam. TECHNIQUE: The study was acquired using full field digital technology and interpreted from soft copy. Breast tomosynthesis in addition to standard 2D mammography was performed. Current study was also ev aluated with a Computer Aided Detection (CAD) system. COMPARISON: No prior exams were available for comparison. BREAST COMPOSITION: There are scattered areas of fibroglandular density in both breasts. FINDINGS: There is minimal vascular calcification in the breasts. No suspicious mass, architectural d istortion or cluster of microcalcifications is seen. IMPRESSION: ACR BI-RADS CATEGORY 1: NEGATIVE There is no mammographic evidence of malignancy. A 1 year screening mammogram is recommended.( 019) The patient will receive written notification of the results. Some breast cancers are not detected with mammography. A negative mammographic report should not brittany y biopsy if a clinically suggestive mass is present. Anahi Holm M.D. ay/:02/06/2018 12:47:28 Leadership Program Associate: RT Nathan(Margarito)(M), [facility] letter sent: Normal 1/2 BI-RADS Code: ACR BI-RADS Category 1: Negative
== END | disposition home or self-care (01) ==
LOC: C.MAMM 11:38
PROVIDERS: ATTEND Obstetrics & Gynecology
DX: Z12.31 Encounter for screening mammogram for malignant neoplasm of breast (principal)